=== PATIENT | male | born 1960 | race Caucasian/White ===

== ENCOUNTER 2017-04-23 19:07 | Emergency (ER) | payer MEDICAID ==
[~2017-04-23] VITALS: Ht 177.8 cm; Wt 113.4 kg
[2017-04-23 19:52] VITALS: BP 179/92
== END 2017-04-23 21:55 | disposition home or self-care (01) ==
LOC: ER 19:07
DX: M17.12 Unilateral primary osteoarthritis, left knee (principal)
CPT/HCPCS: 73564